=== PATIENT | female | born 1990 | race Caucasian/White ===

== ENCOUNTER 2020-09-22 09:23 | Emergency (ER) | payer OTHER, SELFPAY ==
[2020-09-22 09:32] VITALS: BP 124/90; PULSE 117; RESP 20; TEMP 36.3; O2SAT 98
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
[2020-09-22] MEDS: Ibuprofen 800 MG TAB PO (09:53)
[2020-09-22 11:48] VITALS: BP 118/76; PULSE 99; RESP 18; O2SAT 99
== END 2020-09-22 12:03 | disposition home or self-care (01) ==
LOC: ER 12:00
PROVIDERS: Emergency Provider Physician Assistant; PCP Pediatrics
DX: S52.571A Other intraarticular fracture of lower end of right radius, initial encounter for closed fracture (principal); S52.614A Nondisplaced fracture of right ulna styloid process, initial encounter for closed fracture; S09.90XA Unspecified injury of head, initial encounter; M54.5 Low back pain; Y04.2XXA Assault by strike against or bumped into by another person, initial encounter; Y07.01 Husband, perpetrator of maltreatment and neglect
CPT/HCPCS: 25600; 96372; 99281; 72110; 72220; 73110